=== PATIENT | male | born 1960 | race Caucasian/White ===

== ENCOUNTER 2019-08-17 16:51 | Emergency (ER) | payer OTHER ==
[~2019-08-17] VITALS: Ht 175.3 cm; Wt 59.0 kg
[~2019-08-17 16:51] MED LIST: IBUPROFEN 600600 M1; NALTREXONE PO; NOHOMEMEDICATIONS; NORCO 5-325 TA1 EACH PO; OXYCODON-ACETA1 EAC1
[2019-08-17 17:17] LABS: ABSOLUTE NEUTROPHILS 5.1 thou/uL (1.4-8.2); BASOPHILS 0.4 % (0.0-2.0); EOSINOPHILS 0.2 % (0.0-3.0); HEMATOCRIT 44.7 % (42.0-52.0); HEMOGLOBIN 15.4 gm/dL (14.0-18.0); LYMPHOCYTES 10.7 % (24.0-44.0); MCH 33.9 pg (26.0-34.0); MCHC 34.3 g/dL (28.0-37.0); MCV 98.6 fL (80.0-100.0); MONOCYTES 6.9 % (1.0-8.0); PLATELET COUNT 168 thou/uL (150-400); POLYS 81.8 % (36.0-66.0); RBC 4.54 mil/uL (4.50-6.00); WBC 6.2 thou/uL (4.0-11.0)
[2019-08-17 17:27] LABS: ANION GAP 17 mmol/L (7-16); BUN 20 mg/dL (7-18); CALCIUM 10.4 mg/dL (8.5-10.1); CHLORIDE 92 mmol/L (98-107); CO2 21 mmol/L (21-32); CREATININE 1.6 mg/dL (0.7-1.3); GLUCOSE 132 mg/dL (74-106); POTASSIUM 3.4 mmol/L (3.5-5.1); SODIUM 130 mmol/L (136-145)
[2019-08-17 17:37] LABS: ALBUMIN 4.8 g/dL (3.4-5.0); LIPASE 118 U/L (73-393); SGOT 40 U/L (15-37); SGPT 66 U/L (30-65); TOTAL BILIRUBIN 2.8 mg/dL (<0.1-1.0); TROPONIN-I <0.06 ng/mL (<0.06)
[2019-08-17 17:49] LABS: URINE BLOOD TRACE (Negative); URINE CLARITY CLEAR; URINE COLOR YELLOW; URINE GLUCOSE-RANDOM* NEGATIVE (Negative); URINE KETONES 1+ (Negative); URINE LEUKOCYTES-REFLEX NEGATIVE (Negative); URINE NITRITE-REFLEX NEGATIVE (Negative); URINE PROTEIN (DIPSTICK) 2+ (Negative); URINE UROBILINOGEN 0.2 E.U./dl (0.2-1.0)
[2019-08-17 17:51] LABS: ICTOTEST (BILI CONFIRMATORY) Negative (Negative); URINE BILIRUBIN 1+ (Negative)
[2019-08-17 17:56] LABS: BACTERIA-REFLEX None Seen /HPF (None Seen); CRYSTALS None Seen /LPF (None Seen); HYALINE CASTS 0-3 Few /LPF (None Seen); MUCUS 0-3 Light strn/LPF (None Seen); SQUAMOUS 0-3 Few /LPF (0-3); URINE RBC None Seen /HPF (0-2); URINE WBC-REFLEX None Seen /HPF (0-5)
[2019-08-17 17:57] LABS: AMP/METHAMP POSITIVE (Negative); BARBITURATES Negative (Negative); BENZODIAZEPINES Negative (Negative); COCAINE Negative (Negative); METHADONE Negative (Negative); OPIATES Negative (Negative); PCP Negative (Negative)
[2019-08-17] MEDS ORDERED: DOXYCYCLINE 10100 MG PO (21:13)
[2019-08-17] MEDS ORDERED: AMLODIPINE BESY10 MG PO (21:13)
[2019-08-17 21:30] VITALS: BP 170/114
--- NOTE | 2019-08-18 08:00 | EKG ---
[facility] [place] [address] ELECTROCARDIOGRAM REPORT Name: TONI ROGERS Room #: [facility].#: [id number] Admission: 08/17/19 Attend Phys: Discharge: 08/17/19 Date of : 62 Report #: [id number] THIS REPORT FOR: cc: FAM - No family physician/PCP FAM - No family physician/PCP Andres Brewer MD [facility] THIS REPORT FOR: //name// [facility] ED Test Date: 2019-08-17 Test Time: 16:52:40 Pat Name: TONI ROGERS Department: Room: Gender: Director Telehealth: [facility] : 1960 Requested By: Junaa Valentine Order Number: [id number] MD: Andres Brewer Measurements Intervals [place] Rate: 120 P: 73 WI: 145 QRS: 38 QRSD: 94 T: 56 QT: 342 QTc: 484 Interpretive Statements Sinus tachycardia Left ventricular hypertrophy Borderline prolonged QT interval Compared to ECG 01/22/2012 03:20:56 Heart rate has increased Electronically Signed On 08-18-2019 7:58:29 CDT by Andres Brewer [email or web address] <ELECTRONICALLY SIGNED> By: Andres Brewer MD, FAC 08/18/19 [id number] Andres Brewer MD, [facility] /EPI
== END 2019-08-17 21:30 | disposition home or self-care (01) ==
LOC: ER 16:51
PROVIDERS: Nurse Practitioner Family
DX: I10 Essential (primary) hypertension (principal); F15.10 Other stimulant abuse, uncomplicated; I95.1 Orthostatic hypotension; R42 Dizziness and giddiness; R06.02 Shortness of breath; M54.9 Dorsalgia, unspecified; R50.9 Fever, unspecified; R05 Cough; R09.89 Other specified symptoms and signs involving the circulatory and respiratory systems; R26.81 Unsteadiness on feet